=== PATIENT | female | born 1955 | race Caucasian/White ===

== ENCOUNTER → 2017-07-24 | Outpatient (CLI) | payer OTHER | LOC: RAD 14:20 | PROVIDERS: ATTEND Internal Medicine | DX: M51.36 Other intervertebral disc degeneration, lumbar region (principal); M48.02 Spinal stenosis, cervical region; M25.78 Osteophyte, vertebrae; M48.56XD Collapsed vertebra, not elsewhere classified, lumbar region, subsequent encounter for fracture with routine healing; G89.29 Other chronic pain; M25.552 Pain in left hip; R10.2 Pelvic and perineal pain | CPT/HCPCS: 72050; 72110 ==

== ENCOUNTER → 2017-12-23 | Outpatient (CLI) | payer OTHER ==
[~2017-12-23] MED LIST: GADOBUTROL 10 MMOL/10 ML VIAL ONE
== END | disposition home or self-care (01) ==
LOC: CFH 14:34
PROVIDERS: ATTEND Internal Medicine
DX: C50.412 Malignant neoplasm of upper-outer quadrant of left female breast (principal); Z85.3 Personal history of malignant neoplasm of breast
CPT/HCPCS: 82565; A9585; C8908

== ENCOUNTER → 2017-12-27 | Outpatient (CLI) | payer OTHER ==
[~2017-12-27] MED LIST changes: -GADOBUTROL 10 MMOL/10 ML VIAL ONE; +LIDOCAINE 1%, 20ML ONE; +LIDOCAINE 1%-EPI 1:100K, 30ML ONE; +SODIUM BICARBONATE 4.2%, 5ML ONE
== END ==
LOC: CFH 07:05
PROVIDERS: ATTEND Surgery
DX: C50.812 Malignant neoplasm of overlapping sites of left female breast (principal)
CPT/HCPCS: 76942; 88305; J3490

== ENCOUNTER → 2018-01-03 | Outpatient (CLI) | payer OTHER ==
[~2018-01-03] MED LIST changes: +GADOBUTROL 10 MMOL/10 ML VIAL ONE; -LIDOCAINE 1%, 20ML ONE; -LIDOCAINE 1%-EPI 1:100K, 30ML ONE; -SODIUM BICARBONATE 4.2%, 5ML ONE
== END | disposition home or self-care (01) ==
LOC: CFH 06:53
PROVIDERS: ATTEND Surgery
DX: C50.412 Malignant neoplasm of upper-outer quadrant of left female breast (principal); N63.11 Unspecified lump in the right breast, upper outer quadrant
CPT/HCPCS: 19085; 77065; 88305; A9585

== ENCOUNTER 2018-01-16 08:31 | Day surgery (SDC) | payer OTHER ==
[2018-01-13 10:01] LABS: BASOPHILS # (AUTO) 0.04 x10^3/uL (0-0.1); BASOPHILS % (AUTO) 1 % (0-1); EOSINOPHILS # (AUTO) 0.13 x10^3/uL (0-0.4); EOSINOPHILS % (AUTO) 2 % (1-7); LYMPHOCYTES % (AUTO) 42 % (22-44); MD NO; MEAN CORPUSCULAR HEMOGLOBIN 30.6 pg (27.0-34.8); MEAN CORPUSCULAR HGB CONC 33.8 g/dL (32.4-35.8); MEAN CORPUSCULAR VOLUME 90.6 fL (80-100); MONOCYTES # (AUTO) 0.61 x10^3/uL (0.2-0.8); MONOCYTES % (AUTO) 9 % (2-9); NEUTROPHILS # (AUTO) 3.01 x10^3/uL (1.8-6.8); NEUTROPHILS % (AUTO) 46 % (42-75); PLATELET COUNT 370 x10^3/uL (130-400); RED BLOOD COUNT 4.91 x10^6/uL (3.82-5.3)
[~2018-01-16] VITALS: Ht 161.3 cm; Wt 66.7 kg
[~2018-01-16 08:31] MED LIST changes: +AMIT10TA PO; +BUPIVACAINE/PF-EPI 0.25% 1:200K ONE; +CELE200C PO; +ELET40TA PO; -GADOBUTROL 10 MMOL/10 ML VIAL ONE; +ISOSULFAN BLUE 10 MG/ML, 5ML IV ONE; +LEVO75TA PO
[2018-01-16 11:45] VITALS: BP 153/87
[2018-01-16] MEDS ORDERED: LACTATED RINGERS 1,000 ML IV SCH (11:47)
[2018-01-16] MEDS ORDERED: GABAPENTIN 300 MG CAPSULE PO ONE (12:00)
[2018-01-16] MEDS ORDERED: ACETAMINOPHEN 500 MG TABLET PO ONE (12:00)
[2018-01-16] MEDS ORDERED: ONDANSETRON ODT 8 MG PO ONE (12:00)
[2018-01-16] MEDS ORDERED: SCOPOLAMINE PATCH, 1.5MG PATCH.TD72 TD ONE (12:00)
[2018-01-16] MEDS ORDERED: FENTANYL PF 250 MCG/5ML ONE (12:16)
[2018-01-16] MEDS ORDERED: MIDAZOLAM 1 MG/ML, 2ML ONE ×2 (12:16→15:09)
[2018-01-16] MEDS ORDERED: EPINEPHRINE 1 MG/ML, 1ML ONE (12:18)
[2018-01-16] MEDS ORDERED: DEXAMETHASONE 4 MG/ML, 1ML ONE (12:18)
[2018-01-16] MEDS ORDERED: ONDANSETRON 2MG/ML, 2ML ONE (12:18)
[2018-01-16] MEDS ORDERED: CEFAZOLIN 1,000 MG ONE ×2 (12:18)
[2018-01-16] MEDS ORDERED: BUPIVACAINE/PF 0.25% ONE ×2 (12:18)
[2018-01-16] MEDS ORDERED: PROPOFOL 10 MG/ML, 20ML ONE (12:18)
[2018-01-16] MEDS ORDERED: LIDOCAINE 1%, 20ML ONE (13:24)
[2018-01-16] MEDS ORDERED: SODIUM BICARBONATE 4.2%, 5ML ONE (13:24)
[2018-01-16] MEDS ORDERED: HYDROmorphone 1 MG/ML, 1ML IV PRN (14:00)
[2018-01-16] MEDS ORDERED: DIAZEPAM 5 MG/ML, 2ML IVPush PRN (14:00)
[2018-01-16] MEDS ORDERED: OXYcodone 5 MG/5 ML ORAL.SOL UDC PO PRN (14:00)
[2018-01-16] MEDS ORDERED: ALBUTEROL/IPRATROPIUM 2.5MG/0.5MG, 3 ML NPPB PRN (14:00)
[2018-01-16] MEDS ORDERED: MEPERIDINE/PF 25MG/0.5ML IVPush PRN (14:00)
[2018-01-16] MEDS ORDERED: PROMETHAZINE 25 MG/ML, 1ML IV PRN (14:00)
[2018-01-16] MEDS ORDERED: METOCLOPRAMIDE 5 MG/ML, 2ML IV PRN (14:00)
[2018-01-16] MEDS ORDERED: ONDANSETRON ODT 8 MG PO PRN (14:00)
[2018-01-16] MEDS ORDERED: DIPHENHYDRAMINE 50 MG/ML, 1ML IVPush PRN (14:00)
[2018-01-16] MEDS ORDERED: MIDAZOLAM 1 MG/ML, 2ML IV PRN (14:00)
[2018-01-16] MEDS ORDERED: LABETALOL 5MG/ML, 20ML IV PRN (14:00)
[2018-01-16] MEDS ORDERED: FENTANYL PF 100 MCG/2ML IV PRN (14:00)
[2018-01-16] MEDS ORDERED: PROMETHAZINE 25 MG SUPP PR PRN (14:00)
[2018-01-16] MEDS ORDERED: FENTANYL PF 100 MCG/2ML ONE (15:09)
[2018-01-16] MEDS ORDERED: PROMETHAZINE 25 MG/ML, 1ML ONE (15:21)
[2018-01-16] MEDS ORDERED: ONDANSETRON ODT 8 MG ONE (15:33)
== END 2018-01-16 19:05 ==
LOC: CFH 08:31 → EDSTATUS 12:30 → OUT 19:05
PROVIDERS: ATTEND Surgery
DX: C50.512 Malignant neoplasm of lower-outer quadrant of left female breast (principal); N60.91 Unspecified benign mammary dysplasia of right breast; N62 Hypertrophy of breast; E03.9 Hypothyroidism, unspecified; Z88.5 Allergy status to narcotic agent; Z88.0 Allergy status to penicillin; Z88.2 Allergy status to sulfonamides; Z88.8 Allergy status to other drugs, medicaments and biological substances; Z90.710 Acquired absence of both cervix and uterus; Z98.890 Other specified postprocedural states; Z72.89 Other problems related to lifestyle; Z90.49 Acquired absence of other specified parts of digestive tract; Z80.3 Family history of malignant neoplasm of breast; Z83.3 Family history of diabetes mellitus; Z82.49 Family history of ischemic heart disease and other diseases of the circulatory system; Z79.1 Long term (current) use of non-steroidal anti-inflammatories (NSAID); Z79.899 Other long term (current) drug therapy
CPT/HCPCS: 19281; 19301; 19318; 19364; 36415; 38525; 76098; 85025; 88307; 88329; 88341; 88342; 93005; C1729; J0171; J0690; J1100; J2250; J2550; J2704; J3010; J3490; J7120; Q0162; J2405; G0461

== ENCOUNTER → 2018-02-13 | Outpatient (CLI) | payer OTHER ==
[~2018-02-13] MED LIST changes: -BUPIVACAINE/PF-EPI 0.25% 1:200K ONE; -ISOSULFAN BLUE 10 MG/ML, 5ML IV ONE
== END | disposition home or self-care (01) ==
LOC: PETCFH 09:47
PROVIDERS: ATTEND Internal Medicine Hematology & Oncology
DX: C50.812 Malignant neoplasm of overlapping sites of left female breast (principal); D35.02 Benign neoplasm of left adrenal gland; I70.0 Atherosclerosis of aorta
CPT/HCPCS: 78815; A9552

== ENCOUNTER 2018-02-20 05:53 | Day surgery (SDC) | payer OTHER ==
[~2018-02-20] VITALS: Ht 160 cm; Wt 66.0 kg
[~2018-02-20 05:53] MED LIST changes: +CITA20TA6 PO; +HYDR-879 PO
[2018-02-20] MEDS ORDERED: LACTATED RINGERS 1,000 ML IV SCH (06:05)
[2018-02-20 06:24] VITALS: BP 131/80
[2018-02-20] MEDS ORDERED: HEPARIN 1,000 UNITS/ML, 10ML ONE (06:25)
[2018-02-20] MEDS ORDERED: BUPIVACAINE/PF-EPI 0.5% 1:200K ONE (06:25)
[2018-02-20] MEDS ORDERED: GABAPENTIN 300 MG CAPSULE PO ONE (06:30)
[2018-02-20] MEDS ORDERED: ONDANSETRON ODT 8 MG PO ONE (06:30)
[2018-02-20] MEDS ORDERED: ACETAMINOPHEN 500 MG TABLET PO ONE (06:30)
[2018-02-20] MEDS ORDERED: SCOPOLAMINE PATCH, 1.5MG PATCH.TD72 TD ONE (06:30)
[2018-02-20] MEDS ORDERED: MIDAZOLAM 1 MG/ML, 2ML ONE (06:47)
[2018-02-20] MEDS ORDERED: FENTANYL PF 100 MCG/2ML ONE (06:47)
[2018-02-20] MEDS ORDERED: ONDANSETRON ODT 8 MG PO PRN (07:00)
[2018-02-20] MEDS ORDERED: FENTANYL PF 100 MCG/2ML IV PRN (07:00)
[2018-02-20] MEDS ORDERED: MORPHINE SULFATE 4 MG/ML, 1ML IVPush PRN (07:00)
[2018-02-20] MEDS ORDERED: OXYcodone 5 MG/5 ML ORAL.SOL UDC PO PRN (07:00)
[2018-02-20] MEDS ORDERED: ONDANSETRON 2MG/ML, 2ML IV PRN (07:00)
[2018-02-20] MEDS ORDERED: PROMETHAZINE 25 MG/ML, 1ML IV PRN (07:00)
[2018-02-20] MEDS ORDERED: CEFAZOLIN 1,000 MG ONE (15:41)
[2018-02-20] MEDS ORDERED: EPHEDRINE 50 MG/ML, 1ML ONE (15:41)
[2018-02-20] MEDS ORDERED: PROPOFOL 10 MG/ML, 20ML ONE (15:41)
== END 2018-02-20 09:30 ==
LOC: OUT 05:53
PROVIDERS: ATTEND Surgery
DX: Z45.2 Encounter for adjustment and management of vascular access device (principal); C50.912 Malignant neoplasm of unspecified site of left female breast; F41.9 Anxiety disorder, unspecified; E03.9 Hypothyroidism, unspecified; G89.4 Chronic pain syndrome; Z79.899 Other long term (current) drug therapy; Z72.89 Other problems related to lifestyle; Z88.6 Allergy status to analgesic agent; Z88.1 Allergy status to other antibiotic agents; Z88.8 Allergy status to other drugs, medicaments and biological substances; Z88.0 Allergy status to penicillin; Z90.710 Acquired absence of both cervix and uterus; Z87.39 Personal history of other diseases of the musculoskeletal system and connective tissue; Z98.890 Other specified postprocedural states
CPT/HCPCS: 36561; 71045; 77001; C1769; C1788; J0690; J1644; J2250; J2704; J3010; J7120; Q0162

== ENCOUNTER → 2018-02-24 | Outpatient (CLI) | payer OTHER | END | disposition home or self-care (01) | LOC: RAD 09:51 | PROVIDERS: ATTEND Internal Medicine Hematology & Oncology | DX: C50.412 Malignant neoplasm of upper-outer quadrant of left female breast (principal) | CPT/HCPCS: 76536; 78472; A9560 ==

== ENCOUNTER → 2018-05-26 | Outpatient (CLI) | payer OTHER ==
[~2018-05-26] MED LIST changes: +HYDR-3622 PO; -HYDR-879 PO
== END | disposition home or self-care (01) ==
LOC: CFH 12:43
PROVIDERS: ATTEND Internal Medicine Cardiovascular Disease
DX: I34.0 Nonrheumatic mitral (valve) insufficiency (principal); I10 Essential (primary) hypertension
CPT/HCPCS: 93306

== ENCOUNTER 2018-09-25 08:06 | Outpatient (CLI) | payer OTHER | END 2018-09-25 23:59 | disposition home or self-care (01) | LOC: ROC 08:06 | PROVIDERS: ATTEND Radiology Radiation Oncology | DX: Z08 Encounter for follow-up examination after completed treatment for malignant neoplasm (principal); C50.412 Malignant neoplasm of upper-outer quadrant of left female breast | CPT/HCPCS: 99213; G0463 ==

== ENCOUNTER → 2018-11-05 | Outpatient (CLI) | payer OTHER | END | disposition home or self-care (01) | LOC: CFH 10:10 | PROVIDERS: ATTEND Radiology Radiation Oncology | DX: C50.412 Malignant neoplasm of upper-outer quadrant of left female breast (principal); M85.88 Other specified disorders of bone density and structure, other site; E03.9 Hypothyroidism, unspecified; Z92.3 Personal history of irradiation | CPT/HCPCS: 77066; 77080; G0279 ==

== ENCOUNTER → 2018-11-25 | Outpatient (CLI) | payer OTHER | END | disposition home or self-care (01) | LOC: CFH 14:01 | PROVIDERS: ATTEND Internal Medicine Hematology & Oncology | DX: C50.412 Malignant neoplasm of upper-outer quadrant of left female breast (principal); E03.9 Hypothyroidism, unspecified; M85.80 Other specified disorders of bone density and structure, unspecified site | CPT/HCPCS: 76641 ==

== ENCOUNTER 2019-12-21 12:05 | Outpatient (CLI) | payer OTHER | END 2019-12-21 23:59 | disposition home or self-care (01) | LOC: CFH 12:05 | PROVIDERS: ATTEND Internal Medicine Hematology & Oncology | DX: Z12.31 Encounter for screening mammogram for malignant neoplasm of breast (principal); Z85.3 Personal history of malignant neoplasm of breast | CPT/HCPCS: 76641; 77063; 77067 ==

== ENCOUNTER → 2020-12-27 | Outpatient (CLI) | payer OTHER | END | disposition home or self-care (01) | LOC: CFH 10:11 | PROVIDERS: ATTEND Internal Medicine Hematology & Oncology | DX: Z12.31 Encounter for screening mammogram for malignant neoplasm of breast (principal); C50.412 Malignant neoplasm of upper-outer quadrant of left female breast; E03.9 Hypothyroidism, unspecified; M85.89 Other specified disorders of bone density and structure, multiple sites; N60.01 Solitary cyst of right breast | CPT/HCPCS: 76641; 77063; 77067; 77080 ==